=== PATIENT | female | born 1985 | race Caucasian/White ===

== ENCOUNTER 2016-08-04 15:33 | Emergency (ER) | payer OTHER ==
[~2016-08-04] VITALS: Ht 160 cm; Wt 61.4 kg
[~2016-08-04 15:33] MED LIST: ACETAMINOPHEN W1 TA6 PO; ADDERALL30 MG PO; ALBUTEROL0.83 MG/ML IH; ALBUTEROL1.25 MG/3 IH; AMBIEN 10MG10 MG PO; AMOXICILLIN 50500 MG PO; BACTRIM DS 8001 TAB PO; BACTROBAN 22GM22 GM NAS; BENADRYL25 M2; BENADRYL25 M2 PO; CATAPRES 0.1MG0.1 MG; CELEXA 20MG20 MG/TAB PO; CEPHALEXIN500 M1 PO; CIPRO 500MG TA500 MG PO; CLEOCIN HCL300 MG PO; DESYREL 100MG100 MG; DOXYCYCLINE 10100 MG PO; FLAGYL500 MG PO; FLEXERIL 1010 MG/TAB; FLEXERIL 1010 MG/TAB PO; IPRATROPIUM BROM3 M1 IH; LATUDA40 MG PO; LEVAQUIN 5500 MG/TA1 PO; LIORESAL 1010 MG/TAB PO; LORTAB 5/500 501 TAB PO; MAALOX 225 MG/150 ML PO; MAXALT10 MG; NORCO 325 MG-51 TAB PO; NORCO 325 MG-7.1 TAB PO; PEPCID 20MG TAB20 MG PO; PERCOCET 325 MG1 TA2 PO; PHENERGAN 25 TA25 MG PO; PHENERGAN W/CO120 M1 PO; PREDNISONE10 MG PO; PREDNISONE20 MG PO; PROAIR HFA0.09 MG/AC IH; PROVENTIL0.09 MG/A1 IH; PROZAC20 MG PO; SEPTRA DS 8001 TAB PO; TAMIFLU 75MG75 MG PO; TUSS PO; TYLENOL/CODEINE1 ML PO; ULTRAM 50MG TAB50 MG; ULTRAM 50MG TAB50 MG PO; VENTOLIN0.09 MG IH; VYVANSE30 MG PO; VYVANSE50 MG PO; ZITHROMAX 250M250 MG; ZITHROMAX 250M250 MG PO; ZITHROMAX Z PA250 MG PO; ZOFRAN 4MG T4 MG/TAB PO; ZYPREXA10 MG; ZYPREXA20 MG PO
[2016-08-04 15:35] VITALS: BP 145/76; TEMP 98.2
[2016-08-04] MEDS ORDERED: DOXYCYCLINE 10100 MG PO (15:59)
[2016-08-04 16:26] VITALS: PULSE 98
== END 2016-08-04 16:31 | disposition home or self-care (01) ==
LOC: COL.ER 15:33
DX: L03.316 Cellulitis of umbilicus (principal); Z86.14 Personal history of Methicillin resistant Staphylococcus aureus infection; J45.909 Unspecified asthma, uncomplicated; F17.210 Nicotine dependence, cigarettes, uncomplicated

== ENCOUNTER 2017-07-12 02:20 | Emergency (ER) | payer SELFPAY ==
[~2017-07-12] VITALS: Ht 160 cm; Wt 63.6 kg
[2017-07-12 02:29] VITALS: BP 138/88; PULSE 93; TEMP 98.2
== END 2017-07-12 03:12 | disposition home or self-care (01) ==
LOC: COL.ER 02:20
DX: S62.602A Fracture of unspecified phalanx of right middle finger, initial encounter for closed fracture (principal); I10 Essential (primary) hypertension; J45.909 Unspecified asthma, uncomplicated; G43.909 Migraine, unspecified, not intractable, without status migrainosus; F17.210 Nicotine dependence, cigarettes, uncomplicated; F12.90 Cannabis use, unspecified, uncomplicated; F32.9 Major depressive disorder, single episode, unspecified; W22.8XXA Striking against or struck by other objects, initial encounter; Y92.009 Unspecified place in unspecified non-institutional (private) residence as the place of occurrence of the external cause

== ENCOUNTER 2017-09-21 14:25 | Emergency (ER) | payer SELFPAY ==
[~2017-09-21] VITALS: Ht 160 cm; Wt 68.2 kg
[2017-09-21 14:32] VITALS: BP 134/56; PULSE 101; TEMP 98.9
[2017-09-21] MEDS ORDERED: AMOXICILLIN/CLA1 TA1 PO (14:46)
[2017-09-21] MEDS ORDERED: NORCO 325 MG-51 TAB PO (14:46)
[2017-09-21] MEDS ORDERED: ORTHO TRI-CYCLE1 TAB PO (14:47)
== END 2017-09-21 14:54 | disposition home or self-care (01) ==
LOC: COL.ER 14:25
DX: H66.92 Otitis media, unspecified, left ear (principal); J06.9 Acute upper respiratory infection, unspecified; J45.909 Unspecified asthma, uncomplicated; F17.210 Nicotine dependence, cigarettes, uncomplicated

== ENCOUNTER 2017-10-21 23:13 | Emergency (ER) | payer SELFPAY ==
[~2017-10-21] VITALS: Ht 160 cm; Wt 73.2 kg
[~2017-10-21 23:13] MED LIST changes: +AMOXICILLIN/CLA1 TA1 PO; +ORTHO TRI-CYCLE1 TAB PO
[2017-10-21 23:19] VITALS: TEMP 98.4
[2017-10-21] MEDS ORDERED: CYMBALTA 20MG20 MG PO (23:21)
[2017-10-22 02:30] VITALS: BP 119/64; PULSE 63
== END 2017-10-22 02:30 | disposition home or self-care (01) ==
LOC: COL.ER 23:13
DX: G43.909 Migraine, unspecified, not intractable, without status migrainosus (principal); F17.210 Nicotine dependence, cigarettes, uncomplicated
CPT/HCPCS: J0595; J1200; J1885; J2270; J2550

== ENCOUNTER 2017-11-16 16:56 | Emergency (ER) | payer SELFPAY ==
[~2017-11-16] VITALS: Ht 160 cm; Wt 63.6 kg
[~2017-11-16 16:56] MED LIST changes: +CYMBALTA 20MG20 MG PO
[2017-11-16 17:13] VITALS: BP 130/80; TEMP 98.4
[2017-11-16] MEDS ORDERED: BACTRIM DS 8001 TAB PO (18:50)
[2017-11-16 19:04] VITALS: PULSE 88
[2017-11-17] MEDS ORDERED: CEPHALEXIN500 M1 PO (21:42)
== END 2017-11-16 19:04 | disposition home or self-care (01) ==
LOC: COL.ER 16:56
DX: S70.361A Insect bite (nonvenomous), right thigh, initial encounter (principal); J45.909 Unspecified asthma, uncomplicated; F17.210 Nicotine dependence, cigarettes, uncomplicated; Z98.51 Tubal ligation status; Z90.710 Acquired absence of both cervix and uterus; Z88.6 Allergy status to analgesic agent; W57.XXXA Bitten or stung by nonvenomous insect and other nonvenomous arthropods, initial encounter

== ENCOUNTER 2017-11-17 21:06 | Emergency (ER) | payer SELFPAY ==
[~2017-11-17] VITALS: Ht 160 cm; Wt 72.7 kg
[2017-11-17 21:10] VITALS: BP 136/79; TEMP 98.5
[2017-11-17] MEDS ORDERED: CEPHALEXIN500 M1 PO (21:42)
[2017-11-17 21:50] VITALS: PULSE 80
== END 2017-11-17 21:50 | disposition home or self-care (01) ==
LOC: COL.ER 21:06
DX: S70.361A Insect bite (nonvenomous), right thigh, initial encounter (principal); J45.909 Unspecified asthma, uncomplicated; W57.XXXA Bitten or stung by nonvenomous insect and other nonvenomous arthropods, initial encounter

== ENCOUNTER 2018-01-16 05:16 | Emergency (ER) | payer SELFPAY ==
[~2018-01-16] VITALS: Ht 160 cm; Wt 77.3 kg
[2018-01-16 05:20] VITALS: BP 150/91; TEMP 97.4
[2018-01-16 07:06] VITALS: PULSE 78
== END 2018-01-16 07:05 | disposition home or self-care (01) ==
LOC: COL.ER 05:16
DX: G43.909 Migraine, unspecified, not intractable, without status migrainosus (principal); Z90.710 Acquired absence of both cervix and uterus
CPT/HCPCS: J1885

== ENCOUNTER 2018-01-17 16:00 | Emergency (ER) | payer SELFPAY ==
[~2018-01-17] VITALS: Ht 160 cm; Wt 76.4 kg
[2018-01-17 16:04] VITALS: BP 137/81; TEMP 98.5
[2018-01-17 16:56] VITALS: PULSE 87
== END 2018-01-17 17:00 | disposition home or self-care (01) ==
LOC: COL.ER 16:00
DX: G43.909 Migraine, unspecified, not intractable, without status migrainosus (principal); J45.909 Unspecified asthma, uncomplicated; F32.9 Major depressive disorder, single episode, unspecified; F17.210 Nicotine dependence, cigarettes, uncomplicated; Z98.51 Tubal ligation status
CPT/HCPCS: J0595; J2405

== ENCOUNTER 2018-01-21 01:02 | Emergency (ER) | payer SELFPAY ==
[~2018-01-21] VITALS: Ht 160 cm; Wt 77.3 kg
[2018-01-21 01:05] VITALS: TEMP 99.2
[2018-01-21 01:41] LABS: BASO % 0.2 % (0.0-2.0); EOS # 0.6 (0.0-0.7); EOS % 4.9 % (0-4.0); GRAN # 6.9 (1.4-6.5); GRAN % 56.8 % (42.2-75.2); HEMATOCRIT 45.8 % (37.0-47.0); HEMOGLOBIN 15.6 g/dl (12.5-16.0); LYMPH # 3.6 (1.2-3.4); LYMPH % 29.1 % (20.0-51.0); MEAN CELL VOLUME 87 fl (80.0-100.0); MEAN CORPUSCULAR HEMOGLOBIN 30 pg (27.0-31.0); MEAN CORPUSCULAR HGB CONC 34 g/dl (33.0-37.0); MEAN PLATELET VOLUME 8.1 fl (7.4-10.4); MONO # 1.1 (0.1-0.6); MONO % 8.6 % (1.7-9.3); PLATELET COUNT 403 K/mm3 (130-400); RED BLOOD COUNT 5.29 M/mm3 (4.10-5.30); REDCELL DISTRIBUTION WIDTH-CV 13.4 % (11.5-14.5)
[2018-01-21 01:48] LABS: COLLECTION METHOD CLEAN CATCH
[2018-01-21 01:51] LABS: ALBUMIN 4.1 gm/dL (3.5-5.0); BILIRUBIN,TOTAL 0.2 mg/dL (0.0-1.0); CREATININE, serum 0.82 mg/dL (0.52-1.25); POTASSIUM 3.8 mmol/L (3.4-5.0); TOTAL PROTEIN 7.3 gm/dL (6.4-8.2)
[2018-01-21 01:53] LABS: MUCOUS Present /lpf; PH 5 (5-8); SQUAMOUS EPITHELIAL 0-2 /hpf; URINE APPEARANCE Clear; URINE BACTERIA None Seen /hpf; URINE BILIRUBIN Negative (NEGATIVE); URINE BLOOD 1+ (NEGATIVE); URINE COLOR Yellow; URINE GLUCOSE Negative (NEGATIVE); URINE KETONE Negative (NEGATIVE); URINE LEUKOCYTE ESTERASE Negative (NEGATIVE); URINE NITRATE Negative (NEGATIVE); URINE PROTEIN(semi-quant) Negative (NEGATIVE); URINE RBC 0-2 /hpf; URINE UROBILINOGEN Negative (NEGATIVE)
[2018-01-21 05:54] VITALS: BP 133/87; PULSE 114
== END 2018-01-21 06:05 | disposition short-term general hospital (02) ==
LOC: COL.ER 01:02
PROVIDERS: Physician Assistant
DX: J45.901 Unspecified asthma with (acute) exacerbation (principal); Z98.51 Tubal ligation status
CPT/HCPCS: J7512

== ENCOUNTER 2018-02-04 17:29 | Emergency (ER) | payer SELFPAY ==
[~2018-02-04] VITALS: Ht 160 cm; Wt 81.8 kg
[2018-02-04 17:37] VITALS: TEMP 98.1
[2018-02-04 18:40] LABS: BASO # 0.1 (0.0-0.2); BASO % 0.3 % (0.0-2.0); EOS # 0.7 (0.0-0.7); EOS % 4.8 % (0-4.0); GRAN % 55.3 % (42.2-75.2); HEMATOCRIT 44.2 % (37.0-47.0); HEMOGLOBIN 14.7 g/dl (12.5-16.0); LYMPH # 4.4 (1.2-3.4); LYMPH % 30.2 % (20.0-51.0); MEAN CELL VOLUME 88 fl (80.0-100.0); MEAN CORPUSCULAR HEMOGLOBIN 29 pg (27.0-31.0); MEAN CORPUSCULAR HGB CONC 33 g/dl (33.0-37.0); MEAN PLATELET VOLUME 8.2 fl (7.4-10.4); MONO # 1.3 (0.1-0.6); MONO % 8.6 % (1.7-9.3); PLATELET COUNT 364 K/mm3 (130-400); RED BLOOD COUNT 5.03 M/mm3 (4.10-5.30); REDCELL DISTRIBUTION WIDTH-CV 13.6 % (11.5-14.5)
[2018-02-04 18:53] LABS: ALBUMIN 3.8 gm/dL (3.5-5.0); BILIRUBIN,TOTAL 0.2 mg/dL (0.0-1.0); CALCIUM 8.9 mg/dL (8.4-10.2); CREATININE, serum 0.69 mg/dL (0.52-1.25); POTASSIUM 4.1 mmol/L (3.4-5.0); TOTAL PROTEIN 6.6 gm/dL (6.4-8.2)
[2018-02-04 20:46] VITALS: BP 133/72; PULSE 72
== END 2018-02-04 20:48 | disposition home or self-care (01) ==
LOC: COL.ER 17:29
PROVIDERS: Family Medicine
DX: K62.5 Hemorrhage of anus and rectum (principal); J45.909 Unspecified asthma, uncomplicated
CPT/HCPCS: J2270; J2405; J7030; Q9967

== ENCOUNTER 2018-02-11 08:33 | Emergency (ER) | payer SELFPAY ==
[~2018-02-11] VITALS: Ht 160 cm; Wt 81.8 kg
[2018-02-11 08:36] VITALS: TEMP 97.3
[2018-02-11 08:55] LABS: BASO # 0.1 (0.0-0.2); BASO % 0.3 % (0.0-2.0); EOS # 0.6 (0.0-0.7); GRAN # 9.1 (1.4-6.5); GRAN % 58.2 % (42.2-75.2); HEMATOCRIT 46.4 % (37.0-47.0); HEMOGLOBIN 15.6 g/dl (12.5-16.0); LYMPH # 4.6 (1.2-3.4); LYMPH % 29.5 % (20.0-51.0); MEAN CELL VOLUME 87 fl (80.0-100.0); MEAN CORPUSCULAR HEMOGLOBIN 29 pg (27.0-31.0); MEAN CORPUSCULAR HGB CONC 34 g/dl (33.0-37.0); MEAN PLATELET VOLUME 8.4 fl (7.4-10.4); MONO # 1.2 (0.1-0.6); MONO % 7.6 % (1.7-9.3); PLATELET COUNT 387 K/mm3 (130-400); RED BLOOD COUNT 5.32 M/mm3 (4.10-5.30); REDCELL DISTRIBUTION WIDTH-CV 13.9 % (11.5-14.5)
[2018-02-11 09:02] LABS: ALANINE AMINOTRANSFERASE 29 U/L (9-52); ALBUMIN 4.1 gm/dL (3.5-5.0); ALKALINE PHOSPHATASE 73 U/L (50-136); ANION GAP 7 mmol/L (7-16); AST,SGOT 18 U/L (15-37); BILIRUBIN,TOTAL 0.3 mg/dL (0.0-1.0); BLOOD UREA NITROGEN 16 mg/dL (7-17); CALCIUM 9.3 mg/dL (8.4-10.2); CARBON DIOXIDE 24 mmol/L (22-30); CHLORIDE 109 mmol/L (98-107); CREATININE, serum 0.68 mg/dL (0.52-1.25); GLUCOSE 120 mg/dL (74-106); LIPASE 44 U/L (23-300); POTASSIUM 3.9 mmol/L (3.4-5.0); SODIUM 140 mmol/L (137-145); TOTAL PROTEIN 7.1 gm/dL (6.4-8.2)
[2018-02-11] MEDS ORDERED: INFANTS AQU400 IU/ML (09:05)
[2018-02-11] MEDS ORDERED: OMEGA-3 1000 MG1 CAP PO (09:06)
[2018-02-11 09:16] LABS: TROPONIN-I < 0.012 ng/mL (0.000-0.034)
[2018-02-11] MEDS ORDERED: NORCO 325 MG-51 TAB PO (13:07)
[2018-02-11] MEDS ORDERED: PREDNISONE20 MG PO (13:08)
[2018-02-11 13:27] VITALS: BP 136/92; PULSE 84
== END 2018-02-11 13:30 | disposition home or self-care (01) ==
LOC: COL.ER 08:33
PROVIDERS: Emergency Medicine
DX: R07.89 Other chest pain (principal); J45.909 Unspecified asthma, uncomplicated; G43.909 Migraine, unspecified, not intractable, without status migrainosus; F17.210 Nicotine dependence, cigarettes, uncomplicated; Z90.710 Acquired absence of both cervix and uterus
CPT/HCPCS: J1170; J1885; J7030; J7512

== ENCOUNTER 2018-06-03 08:00 | Outpatient (RCR) | payer MEDICAID ==
[~2018-06-03 08:00] MED LIST changes: +DOXYCYCLINE HY100 MG PO; +INFANTS AQU400 IU/ML; +OMEGA-3 1000 MG1 CAP PO; +PRIL40 PO
[2018-08-01] MEDS ORDERED: D3-5050000 IU PO (06:53)
[2018-08-01] MEDS ORDERED: SINGULAIR 110 MG/TAB PO (06:55)
[2018-08-01] MEDS ORDERED: MAGNESIUM250 M1 PO (06:56)
[2018-08-01] MEDS ORDERED: ZITHROMAX Z PA250 MG PO (07:30)
== END 2018-08-31 15:56 | disposition home or self-care (01) ==
LOC: MKS.ESL.PT 08:00
DX: G89.29 Other chronic pain (principal); M54.42 Lumbago with sciatica, left side; M54.41 Lumbago with sciatica, right side

== ENCOUNTER 2018-08-01 06:45 | Emergency (ER) | payer MEDICAID ==
[~2018-08-01] VITALS: Ht 160 cm; Wt 81.8 kg
[2018-08-01 06:48] VITALS: BP 135/86; PULSE 94; TEMP 97.2
[2018-08-01] MEDS ORDERED: D3-5050000 IU PO (06:53)
[2018-08-01] MEDS ORDERED: SINGULAIR 110 MG/TAB PO (06:55)
[2018-08-01] MEDS ORDERED: MAGNESIUM250 M1 PO (06:56)
[2018-08-01] MEDS ORDERED: ZITHROMAX Z PA250 MG PO (07:30)
== END 2018-08-01 07:55 | disposition home or self-care (01) ==
LOC: COL.ER 06:45
DX: J20.9 Acute bronchitis, unspecified (principal); J42 Unspecified chronic bronchitis; J02.9 Acute pharyngitis, unspecified; G43.909 Migraine, unspecified, not intractable, without status migrainosus

== ENCOUNTER 2018-09-17 15:25 | Emergency (ER) | payer MEDICAID ==
[~2018-09-17] VITALS: Ht 160 cm; Wt 85.4 kg
[~2018-09-17 15:25] MED LIST changes: +D3-5050000 IU PO; +MAGNESIUM250 M1 PO; +SINGULAIR 110 MG/TAB PO
[2018-09-17 15:40] VITALS: TEMP 97.4
[2018-09-17 18:22] VITALS: BP 132/84; PULSE 82
== END 2018-09-17 18:25 | disposition home or self-care (01) ==
LOC: COL.ER 15:25
DX: M54.5 Low back pain (principal); J45.909 Unspecified asthma, uncomplicated; G43.909 Migraine, unspecified, not intractable, without status migrainosus; F17.210 Nicotine dependence, cigarettes, uncomplicated; Z98.51 Tubal ligation status; Z90.710 Acquired absence of both cervix and uterus; W19.XXXA Unspecified fall, initial encounter

== ENCOUNTER 2018-10-18 17:13 | Emergency (ER) | payer MEDICAID ==
[~2018-10-18] VITALS: Ht 160 cm; Wt 81.8 kg
[2018-10-18 17:25] VITALS: TEMP 98
[2018-10-18 17:44] LABS: COLLECTION METHOD CLEAN CATCH
[2018-10-18 17:50] LABS: MUCOUS Present /lpf; PH 5 (5-8); SQUAMOUS EPITHELIAL 0-2 /hpf; URINE APPEARANCE Clear; URINE BACTERIA Rare /hpf; URINE BILIRUBIN Negative (NEGATIVE); URINE BLOOD Negative (NEGATIVE); URINE COLOR Yellow; URINE GLUCOSE Negative (NEGATIVE); URINE KETONE Negative (NEGATIVE); URINE LEUKOCYTE ESTERASE Negative (NEGATIVE); URINE NITRATE Negative (NEGATIVE); URINE PROTEIN(semi-quant) Negative (NEGATIVE); URINE RBC 0-2 /hpf; URINE UROBILINOGEN Negative (NEGATIVE)
[2018-10-18 18:02] LABS: TRICYCLIC ANTIDEPRESS URINE NEGATIVE
[2018-10-18 18:05] LABS: BASO % 0.2 % (0.0-2.0); EOS # 0.4 (0.0-0.7); GRAN % 63.2 % (42.2-75.2); HEMATOCRIT 42.3 % (37.0-47.0); HEMOGLOBIN 14.4 g/dl (12.5-16.0); LYMPH # 3.8 (1.2-3.4); LYMPH % 26.7 % (20.0-51.0); MEAN CELL VOLUME 84 fl (80.0-100.0); MEAN CORPUSCULAR HEMOGLOBIN 29 pg (27.0-31.0); MEAN CORPUSCULAR HGB CONC 34 g/dl (33.0-37.0); MEAN PLATELET VOLUME 8.1 fl (7.4-10.4); MONO # 0.9 (0.1-0.6); MONO % 6.5 % (1.7-9.3); PLATELET COUNT 389 K/mm3 (130-400); RED BLOOD COUNT 5.05 M/mm3 (4.10-5.30); REDCELL DISTRIBUTION WIDTH-CV 13.4 % (11.5-14.5)
[2018-10-18 18:14] LABS: ALANINE AMINOTRANSFERASE < 6 U/L (9-52); ALKALINE PHOSPHATASE 83 U/L (50-136); ANION GAP 10 mmol/L (7-16); AST,SGOT 13 U/L (15-37); BILIRUBIN,TOTAL 0.3 mg/dL (0.0-1.0); BLOOD UREA NITROGEN 9 mg/dL (7-17); CALCIUM 9.3 mg/dL (8.4-10.2); CARBON DIOXIDE 17 mmol/L (22-30); CHLORIDE 113 mmol/L (98-107); GLUCOSE 113 mg/dL (74-106); POTASSIUM 3.7 mmol/L (3.4-5.0); SODIUM 140 mmol/L (137-145); TOTAL PROTEIN 7.2 gm/dL (6.4-8.2)
[2018-10-18 18:24] LABS: ACETAMINOPHEN < 10 ug/mL (10-30); ALCOHOL(ethanol),MEDICAL < 10 mg/dL; SALICYLATE < 1.0 mg/dL
[2018-10-18] MEDS ORDERED: ATARAX 25MG25 MG/TAB PO (20:41)
[2018-10-18] MEDS ORDERED: VITAMIN D 50,1.25 MG PO (20:42)
[2018-10-18] MEDS ORDERED: TOPAMAX25 M1 PO (20:43)
[2018-10-18] MEDS ORDERED: SARAFEM20 MG PO (20:44)
[2018-10-18] MEDS ORDERED: SARAFEM10 MG PO (20:44)
[2018-10-18] MEDS ORDERED: MAXALT10 MG (20:45)
[2018-10-19 06:30] VITALS: BP 139/67
[2018-10-19 11:25] VITALS: PULSE 83
== END 2018-10-19 11:20 ==
LOC: COL.ER 17:13
PROVIDERS: Emergency Medicine
DX: R45.851 Suicidal ideations (principal); F32.9 Major depressive disorder, single episode, unspecified; J45.909 Unspecified asthma, uncomplicated; F17.210 Nicotine dependence, cigarettes, uncomplicated

== ENCOUNTER → 2018-12-07 | Outpatient (CLI) | payer MEDICAID ==
[~2018-12-07] MED LIST changes: +ATARAX 25MG25 MG/TAB PO; +NEURONTIN100 MG/CAP PO; +PROVIGIL200 MG PO; +PROZAC40 MG PO; +SARAFEM10 MG PO; +SARAFEM20 MG PO; +TOPAMAX25 M1 PO; +TYLENOL 325MG325 MG PO; +VITAMIN D 50,1.25 MG PO
[2018-12-07 13:12] LABS: BASO % 0.2 % (0.0-2.0); EOS # 0.2 (0.0-0.7); EOS % 2.6 % (0-4.0); GRAN # 4.6 (1.4-6.5); GRAN % 50.8 % (42.2-75.2); HEMATOCRIT 44.3 % (37.0-47.0); HEMOGLOBIN 14.6 g/dl (12.5-16.0); LYMPH # 3.5 (1.2-3.4); LYMPH % 38.9 % (20.0-51.0); MEAN CELL VOLUME 86 fl (80.0-100.0); MEAN CORPUSCULAR HEMOGLOBIN 29 pg (27.0-31.0); MEAN CORPUSCULAR HGB CONC 33 g/dl (33.0-37.0); MEAN PLATELET VOLUME 8.3 fl (7.4-10.4); MONO # 0.7 (0.1-0.6); MONO % 7.2 % (1.7-9.3); PLATELET COUNT 416 K/mm3 (130-400); RED BLOOD COUNT 5.13 M/mm3 (4.10-5.30); REDCELL DISTRIBUTION WIDTH-CV 14.4 % (11.5-14.5)
== END ==
LOC: COL.RAD 12:03
PROVIDERS: Internal Medicine Pulmonary Disease
DX: J45.40 Moderate persistent asthma, uncomplicated (principal)

== ENCOUNTER 2018-12-12 20:19 | Emergency (ER) | payer MEDICAID ==
[~2018-12-12] VITALS: Ht 160 cm; Wt 84.1 kg
[2018-12-12 20:25] VITALS: BP 131/85; TEMP 98.4
[2018-12-12 21:41] LABS: BASO % 0.2 % (0.0-2.0); EOS # 0.3 (0.0-0.7); EOS % 3.1 % (0-4.0); GRAN # 5.3 (1.4-6.5); GRAN % 47.9 % (42.2-75.2); HEMATOCRIT 42.7 % (37.0-47.0); HEMOGLOBIN 14.1 g/dl (12.5-16.0); LYMPH # 4.6 (1.2-3.4); LYMPH % 41.2 % (20.0-51.0); MEAN CELL VOLUME 86 fl (80.0-100.0); MEAN CORPUSCULAR HEMOGLOBIN 29 pg (27.0-31.0); MEAN CORPUSCULAR HGB CONC 33 g/dl (33.0-37.0); MEAN PLATELET VOLUME 8.2 fl (7.4-10.4); MONO # 0.8 (0.1-0.6); MONO % 7.2 % (1.7-9.3); PLATELET COUNT 402 K/mm3 (130-400); RED BLOOD COUNT 4.94 M/mm3 (4.10-5.30); REDCELL DISTRIBUTION WIDTH-CV 14.6 % (11.5-14.5)
[2018-12-12 21:54] LABS: ALANINE AMINOTRANSFERASE < 6 U/L (9-52); ALBUMIN 4.2 gm/dL (3.5-5.0); ALKALINE PHOSPHATASE 81 U/L (50-136); ANION GAP 7 mmol/L (7-16); AST,SGOT 16 U/L (15-37); BILIRUBIN,TOTAL 0.2 mg/dL (0.0-1.0); BLOOD UREA NITROGEN 10 mg/dL (7-17); C-REACTIVE PROTEIN 0.6 mg/dL (0.0-0.9); CALCIUM 8.8 mg/dL (8.4-10.2); CARBON DIOXIDE 21 mmol/L (22-30); CHLORIDE 112 mmol/L (98-107); CREATININE, serum 0.73 (0.52-1.25); GLUCOSE 86 mg/dL (74-106); POTASSIUM 4.3 mmol/L (3.4-5.0); SODIUM 139 mmol/L (137-145); TOTAL PROTEIN 7.2 gm/dL (6.4-8.2)
[2018-12-12 22:53] LABS: COLLECTION METHOD CLEAN CATCH
[2018-12-12 23:16] LABS: MUCOUS Present /lpf; PH 6 (5-8); SQUAMOUS EPITHELIAL 0-2 /hpf; URINE APPEARANCE Clear; URINE BACTERIA None Seen /hpf; URINE BILIRUBIN Negative (NEGATIVE); URINE BLOOD Negative (NEGATIVE); URINE COLOR Yellow; URINE GLUCOSE Negative (NEGATIVE); URINE KETONE Negative (NEGATIVE); URINE LEUKOCYTE ESTERASE Negative (NEGATIVE); URINE NITRATE Negative (NEGATIVE); URINE PROTEIN(semi-quant) Negative (NEGATIVE); URINE RBC 0-2 /hpf; URINE UROBILINOGEN Negative (NEGATIVE)
[2018-12-13 00:20] VITALS: PULSE 68
== END 2018-12-13 00:20 | disposition home or self-care (01) ==
LOC: COL.ER 20:19
PROVIDERS: Emergency Medicine
DX: M54.5 Low back pain (principal); G89.29 Other chronic pain; F17.210 Nicotine dependence, cigarettes, uncomplicated
CPT/HCPCS: J3010; Q9967

== ENCOUNTER → 2018-12-22 | Outpatient (CLI) | payer MEDICAID | LOC: COL.RAD 14:08 | DX: M43.06 Spondylolysis, lumbar region (principal); M51.16 Intervertebral disc disorders with radiculopathy, lumbar region ==

== ENCOUNTER 2018-12-29 00:07 | Emergency (ER) | payer MEDICAID ==
[~2018-12-29] VITALS: Ht 162.6 cm; Wt 87.3 kg
[2018-12-29 00:17] VITALS: BP 132/80; TEMP 98.2
[2018-12-29 02:35] VITALS: PULSE 82
== END 2018-12-29 02:35 | disposition home or self-care (01) ==
LOC: COL.ER 00:07
DX: G43.909 Migraine, unspecified, not intractable, without status migrainosus (principal); F17.210 Nicotine dependence, cigarettes, uncomplicated; J44.9 Chronic obstructive pulmonary disease, unspecified; Z90.710 Acquired absence of both cervix and uterus
CPT/HCPCS: J1200; J1885; J2550

== ENCOUNTER 2019-01-10 21:02 | Emergency (ER) | payer MEDICAID ==
[~2019-01-10] VITALS: Ht 160 cm; Wt 86.8 kg
[2019-01-10 21:08] VITALS: BP 147/89; TEMP 97.7
[2019-01-10 21:45] VITALS: PULSE 79
== END 2019-01-10 21:51 | disposition home or self-care (01) ==
LOC: COL.ER 21:02
DX: L02.411 Cutaneous abscess of right axilla (principal)

== ENCOUNTER 2019-01-29 15:00 | Emergency (ER) | payer MEDICAID ==
[~2019-01-29] VITALS: Ht 160 cm; Wt 86.8 kg
[2019-01-29 15:13] VITALS: TEMP 97.4
[2019-01-29 15:50] LABS: BASO % 0.2 % (0.0-2.0); EOS # 0.4 (0.0-0.7); EOS % 4.9 % (0-4.0); GRAN # 3.4 (1.4-6.5); GRAN % 38.1 % (42.2-75.2); HEMATOCRIT 41.4 % (37.0-47.0); HEMOGLOBIN 13.6 g/dl (12.5-16.0); LYMPH # 4.3 (1.2-3.4); LYMPH % 47.9 % (20.0-51.0); MEAN CELL VOLUME 89 fl (80.0-100.0); MEAN CORPUSCULAR HEMOGLOBIN 29 pg (27.0-31.0); MEAN CORPUSCULAR HGB CONC 33 g/dl (33.0-37.0); MEAN PLATELET VOLUME 8.3 fl (7.4-10.4); MONO # 0.7 (0.1-0.6); PLATELET COUNT 409 K/mm3 (130-400); RED BLOOD COUNT 4.66 M/mm3 (4.10-5.30); REDCELL DISTRIBUTION WIDTH-CV 14.6 % (11.5-14.5)
[2019-01-29 15:59] LABS: ALBUMIN 4.1 gm/dL (3.5-5.0); BILIRUBIN,TOTAL 0.3 mg/dL (0.0-1.0); CALCIUM 9.4 mg/dL (8.4-10.2); CREATININE, serum 0.67 (0.52-1.25); POTASSIUM 4.2 mmol/L (3.4-5.0); TOTAL PROTEIN 7.2 gm/dL (6.4-8.2)
[2019-01-29 16:30] LABS: COLLECTION METHOD CLEAN CATCH
[2019-01-29 16:36] LABS: MUCOUS Present /lpf; PH 5 (5-8); SQUAMOUS EPITHELIAL 0-2 /hpf; URINE APPEARANCE Clear; URINE BACTERIA Rare /hpf; URINE BILIRUBIN Negative (NEGATIVE); URINE BLOOD Negative (NEGATIVE); URINE COLOR Yellow; URINE GLUCOSE Negative (NEGATIVE); URINE KETONE Negative (NEGATIVE); URINE LEUKOCYTE ESTERASE Negative (NEGATIVE); URINE NITRATE Negative (NEGATIVE); URINE PROTEIN(semi-quant) Negative (NEGATIVE); URINE RBC 0-2 /hpf; URINE UROBILINOGEN Negative (NEGATIVE)
[2019-01-29] MEDS ORDERED: NORCO 325 MG-51 TAB PO (16:55)
[2019-01-29] MEDS ORDERED: ZOFRAN ODT4 MG PO (16:55)
[2019-01-29 17:19] VITALS: BP 114/95; PULSE 86
== END 2019-01-29 17:18 | disposition home or self-care (01) ==
LOC: COL.ER 15:00
PROVIDERS: Emergency Medicine
DX: R11.2 Nausea with vomiting, unspecified (principal); M54.5 Low back pain; J44.9 Chronic obstructive pulmonary disease, unspecified; F41.9 Anxiety disorder, unspecified; F43.10 Post-traumatic stress disorder, unspecified; F17.210 Nicotine dependence, cigarettes, uncomplicated; Z90.710 Acquired absence of both cervix and uterus; Z98.51 Tubal ligation status
CPT/HCPCS: J1885; J2405; J3010; J7030

== ENCOUNTER 2019-02-01 20:03 | Emergency (ER) | payer MEDICAID ==
[~2019-02-01] VITALS: Ht 160 cm; Wt 86.8 kg
[~2019-02-01 20:03] MED LIST changes: +ZOFRAN ODT4 MG PO
[2019-02-01 20:18] VITALS: TEMP 98.4
[2019-02-01 20:48] LABS: STREP SCREEN NEGATIVE
[2019-02-01] MEDS ORDERED: NYSTATIN OR100 MU/ML PO (22:07)
[2019-02-01 22:16] VITALS: BP 120/80; PULSE 75
== END 2019-02-01 22:16 | disposition home or self-care (01) ==
LOC: COL.ER 20:03
PROVIDERS: Family Medicine
DX: J02.9 Acute pharyngitis, unspecified (principal); F31.9 Bipolar disorder, unspecified; G43.909 Migraine, unspecified, not intractable, without status migrainosus; J45.909 Unspecified asthma, uncomplicated; F17.210 Nicotine dependence, cigarettes, uncomplicated; I10 Essential (primary) hypertension

== ENCOUNTER 2019-02-05 02:35 | Emergency (ER) | payer MEDICAID ==
[~2019-02-05] VITALS: Ht 160 cm; Wt 90.9 kg
[~2019-02-05 02:35] MED LIST changes: +NYSTATIN OR100 MU/ML PO
[2019-02-05 02:54] VITALS: BP 131/82; TEMP 98.2
[2019-02-05 03:40] LABS: BASO % 0.1 % (0.0-2.0); EOS # 0.4 (0.0-0.7); EOS % 3.5 % (0-4.0); GRAN # 7.2 (1.4-6.5); GRAN % 59.9 % (42.2-75.2); HEMATOCRIT 38.9 % (37.0-47.0); HEMOGLOBIN 12.9 g/dl (12.5-16.0); LYMPH # 3.5 (1.2-3.4); LYMPH % 29.1 % (20.0-51.0); MEAN CELL VOLUME 87 fl (80.0-100.0); MEAN CORPUSCULAR HEMOGLOBIN 29 pg (27.0-31.0); MEAN CORPUSCULAR HGB CONC 33 g/dl (33.0-37.0); MEAN PLATELET VOLUME 8.1 fl (7.4-10.4); MONO # 0.8 (0.1-0.6); MONO % 6.6 % (1.7-9.3); PLATELET COUNT 406 K/mm3 (130-400); RED BLOOD COUNT 4.48 M/mm3 (4.10-5.30); REDCELL DISTRIBUTION WIDTH-CV 14.3 % (11.5-14.5)
[2019-02-05 03:45] LABS: ALBUMIN 3.9 gm/dL (3.5-5.0); BILIRUBIN,TOTAL 0.4 mg/dL (0.0-1.0); CREATININE, serum 0.7 (0.52-1.25); POTASSIUM 3.9 mmol/L (3.4-5.0); TOTAL PROTEIN 7.2 gm/dL (6.4-8.2)
[2019-02-05 05:21] VITALS: PULSE 85
== END 2019-02-05 05:21 | disposition home or self-care (01) ==
LOC: COL.ER 02:35
PROVIDERS: Emergency Medicine
DX: J45.901 Unspecified asthma with (acute) exacerbation (principal); F17.210 Nicotine dependence, cigarettes, uncomplicated; Z90.710 Acquired absence of both cervix and uterus
CPT/HCPCS: J7030

== ENCOUNTER → 2019-02-09 | Outpatient (CLI) | payer MEDICAID ==
[~2019-02-09] MED LIST changes: +00186-0370-20 IH; +CHANTIX 1MG1 MG PO; +LEVAQUIN 750MG750 M1 PO; +PREDNISONE20 MG; +RITALIN 5MG5 MG/TAB PO; +RT SPIRIVA18 MCG IH; +TESSALON PERLE200 MG PO
== END ==
LOC: MHCPAIN 13:16
DX: G89.29 Other chronic pain (principal); M47.817 Spondylosis without myelopathy or radiculopathy, lumbosacral region; M54.16 Radiculopathy, lumbar region; M53.3 Sacrococcygeal disorders, not elsewhere classified
CPT/HCPCS: G0463

== ENCOUNTER 2019-03-05 13:35 | Emergency (ER) | payer MEDICAID ==
[~2019-03-05] VITALS: Ht 160 cm; Wt 90.0 kg
[~2019-03-05 13:35] MED LIST changes: +OMNICEF 300MG300 MG PO; +ROBITUSSIN DM 105 ML PO
[2019-03-05 13:46] VITALS: TEMP 98.4
[2019-03-05 15:07] LABS: COLLECTION METHOD CLEAN CATCH
[2019-03-05 15:27] LABS: MUCOUS Present /lpf; PH 6 (5-8); SQUAMOUS EPITHELIAL 0-2 /hpf; URINE APPEARANCE Clear; URINE BACTERIA Moderate /hpf; URINE BILIRUBIN Negative (NEGATIVE); URINE BLOOD 2+ (NEGATIVE); URINE COLOR Yellow; URINE GLUCOSE Negative (NEGATIVE); URINE KETONE Negative (NEGATIVE); URINE LEUKOCYTE ESTERASE Trace (NEGATIVE); URINE NITRATE Negative (NEGATIVE); URINE PROTEIN(semi-quant) Negative (NEGATIVE); URINE UROBILINOGEN Negative (NEGATIVE)
[2019-03-05 15:47] LABS: BASO % 0.2 % (0.0-2.0); EOS # 0.5 (0.0-0.7); EOS % 5.3 % (0-4.0); GRAN % 56.3 % (42.2-75.2); HEMATOCRIT 39.1 % (37.0-47.0); HEMOGLOBIN 13.1 g/dl (12.5-16.0); LYMPH # 2.8 (1.2-3.4); LYMPH % 32.3 % (20.0-51.0); MEAN CELL VOLUME 87 fl (80.0-100.0); MEAN CORPUSCULAR HEMOGLOBIN 29 pg (27.0-31.0); MEAN CORPUSCULAR HGB CONC 34 g/dl (33.0-37.0); MEAN PLATELET VOLUME 8.4 fl (7.4-10.4); MONO # 0.5 (0.1-0.6); MONO % 5.1 % (1.7-9.3); PLATELET COUNT 383 K/mm3 (130-400); RED BLOOD COUNT 4.48 M/mm3 (4.10-5.30)
[2019-03-05 17:20] LABS: ALANINE AMINOTRANSFERASE 19 U/L (9-52); ALBUMIN 3.4 gm/dL (3.5-5.0); ALKALINE PHOSPHATASE 85 U/L (50-136); ANION GAP 7 mmol/L (7-16); AST,SGOT 19 U/L (15-37); BILIRUBIN,TOTAL < 0.1 mg/dL (0.0-1.0); BLOOD UREA NITROGEN 9 mg/dL (7-17); CALCIUM 8.4 mg/dL (8.4-10.2); CARBON DIOXIDE 21 mmol/L (22-30); CHLORIDE 108 mmol/L (98-107); CREATININE, serum 0.65 (0.52-1.25); GLUCOSE 120 mg/dL (74-106); POTASSIUM 4.1 mmol/L (3.4-5.0); SODIUM 136 mmol/L (137-145); TOTAL PROTEIN 6.3 gm/dL (6.4-8.2)
[2019-03-05] MEDS ORDERED: NORCO 325 MG-51 TAB PO (17:22)
[2019-03-05 17:36] VITALS: BP 128/89; PULSE 93
[2019-03-05] MEDS ORDERED: CEPHALEXIN500 M1 PO (18:41)
== END 2019-03-05 17:32 | disposition home or self-care (01) ==
LOC: COL.ER 13:35
PROVIDERS: Emergency Medicine
DX: G89.29 Other chronic pain (principal); R10.9 Unspecified abdominal pain; F17.210 Nicotine dependence, cigarettes, uncomplicated; G43.909 Migraine, unspecified, not intractable, without status migrainosus; F31.9 Bipolar disorder, unspecified; J44.9 Chronic obstructive pulmonary disease, unspecified; Z98.51 Tubal ligation status; Z90.710 Acquired absence of both cervix and uterus
CPT/HCPCS: J2270; J7030; Q9967

== ENCOUNTER 2019-03-15 21:05 | Emergency (ER) | payer MEDICAID ==
[~2019-03-15] VITALS: Ht 160 cm; Wt 95.0 kg
[~2019-03-15 21:05] MED LIST changes: +PROZAC 20MG20 MG PO; -PROZAC40 MG PO
[2019-03-15 21:10] VITALS: TEMP 97.8
[2019-03-15 21:51] LABS: BASO % 0.4 % (0.0-2.0); EOS # 0.8 (0.0-0.7); EOS % 6.8 % (0-4.0); GRAN # 4.8 (1.4-6.5); GRAN % 42.8 % (42.2-75.2); HEMOGLOBIN 13.6 g/dl (12.5-16.0); LYMPH # 4.7 (1.2-3.4); MEAN CELL VOLUME 87 fl (80.0-100.0); MEAN CORPUSCULAR HEMOGLOBIN 29 pg (27.0-31.0); MEAN CORPUSCULAR HGB CONC 33 g/dl (33.0-37.0); MONO # 0.8 (0.1-0.6); MONO % 6.8 % (1.7-9.3); PLATELET COUNT 517 K/mm3 (130-400); RED BLOOD COUNT 4.72 M/mm3 (4.10-5.30)
[2019-03-15] MEDS ORDERED: NEURONTIN100 MG/CAP PO (21:55)
[2019-03-15 22:01] LABS: ALBUMIN 4.2 gm/dL (3.5-5.0); BILIRUBIN,TOTAL 0.1 mg/dL (0.0-1.0); CREATININE, serum 0.65 (0.52-1.25); POTASSIUM 3.8 mmol/L (3.4-5.0); TOTAL PROTEIN 7.5 gm/dL (6.4-8.2)
[2019-03-15 22:25] LABS: ERYTHROCYTE SEDIMENTATION RATE 14 mm/hr (0-20)
[2019-03-15 22:57] VITALS: BP 128/80; PULSE 91
[2019-03-15] MEDS ORDERED: BACTRIM DS 8001 TAB PO (22:59)
== END 2019-03-15 23:06 | disposition home or self-care (01) ==
LOC: COL.ER 21:05
PROVIDERS: Emergency Medicine
DX: L73.8 Other specified follicular disorders (principal); F31.9 Bipolar disorder, unspecified; G43.909 Migraine, unspecified, not intractable, without status migrainosus; J44.9 Chronic obstructive pulmonary disease, unspecified

== ENCOUNTER 2019-03-16 20:42 | Emergency (ER) | payer MEDICAID ==
[~2019-03-16] VITALS: Ht 160 cm; Wt 95.0 kg
[2019-03-16 20:53] VITALS: TEMP 97.6
[2019-03-16 21:35] LABS: BASO # 0.1 (0.0-0.2); BASO % 0.4 % (0.0-2.0); EOS # 0.6 (0.0-0.7); EOS % 5.2 % (0-4.0); GRAN # 5.7 (1.4-6.5); GRAN % 47.7 % (42.2-75.2); HEMATOCRIT 40.6 % (37.0-47.0); HEMOGLOBIN 13.2 g/dl (12.5-16.0); LYMPH # 4.6 (1.2-3.4); LYMPH % 38.3 % (20.0-51.0); MEAN CELL VOLUME 88 fl (80.0-100.0); MEAN CORPUSCULAR HEMOGLOBIN 29 pg (27.0-31.0); MEAN CORPUSCULAR HGB CONC 33 g/dl (33.0-37.0); MONO # 0.9 (0.1-0.6); MONO % 7.6 % (1.7-9.3); PLATELET COUNT 522 K/mm3 (130-400); RED BLOOD COUNT 4.61 M/mm3 (4.10-5.30); REDCELL DISTRIBUTION WIDTH-CV 14.2 % (11.5-14.5)
[2019-03-16 22:27] LABS: ERYTHROCYTE SEDIMENTATION RATE 18 mm/hr (0-20)
[2019-03-16 23:18] VITALS: BP 133/81; PULSE 84
== END 2019-03-16 23:45 | disposition home or self-care (01) ==
LOC: COL.ER 20:42
PROVIDERS: Emergency Medicine
DX: L73.9 Follicular disorder, unspecified (principal); F31.9 Bipolar disorder, unspecified; J44.9 Chronic obstructive pulmonary disease, unspecified; J45.909 Unspecified asthma, uncomplicated; G43.909 Migraine, unspecified, not intractable, without status migrainosus
CPT/HCPCS: J2270; Q9967

== ENCOUNTER 2019-03-17 11:07 | Inpatient (IN) | payer MEDICAID ==
[2019-03-17] VITALS (11 sets, daily range): BP systolic 120–137; BP diastolic 63–109; PULSE 80–106; TEMP 97–98.5
[~2019-03-17] VITALS: Ht 160 cm; Wt 93.5 kg
--- NOTE | 2019-03-17 12:40 | NUR ---
Patient [place] [facility] She is alert and oriented. She is able to ambulate to room with steady gait. Procedure confirmed, denies any questions, and verbalizes understanding. VSS and WNL on room air. Changes to gown independently. PIV started in left hand with x1 attempt and without complication. History and medication list completed with patient. Breath sounds clear bilaterally to auscultation. Clear S1S2 heart tones heard with regular rate noted. +2 radial, PT, and DP pulses bilaterally. No edema noted. Bowel sounds present and active. Suprapubic incision is red, swollen. Patient to the OR with SUBWAY CONDUCTOR Josie at 1240.
--- NOTE | 2019-03-17 13:30 | NUR ---
Patient up to floor at 1330, mother met in room, patient reports having headache and has eyes covered, room is dark and she requests silence. Provided with requested caffene. Pain medications offered and will be taken to patient.
--- NOTE | 2019-03-17 19:00 | NUR ---
Patient arrived to floor at 1330, was complaining of headache. Had head covered with blanket and all lights off, did become irritated with mother when she was talking loudly. Did offer warm blanket to place over head and she accepted. Dressing observed and was clean dry and intact. She did request a pop, took in 2 pepsis and she requested Dr. Duggan. Called dietary and Dr. Duggan is not carried. She was left the 2 pepsis and a cup of ice. 1430 she did end up drinking both pops. She was administered PRN morphine and roxicodone, rested then requested to go to the bathroom. Ambulated to restroom with assist. She did begin feeling better just complaining of feeling sore, headache was improving. New dressing placed after returing to bed as the other was falling off. Small amount of pink drainage noted to dressing. She complained of itching under the tape. Did apply paper tape and a new abd. 1715 she still had complaints of itching. Was provided with mesh panties and applied new abd pad without tape per her request. Packing is still in place and old dressing again had pink drainage. 1800 patient requested benadryl as she continued to itch. She stated that Dr. Oglesby had seen her during the time she requested the benadryl. Did place call to him and he did give an order as entered in JUN. This was adminsitered at 1830. Patient was sitting up in bed at this time with mother and aunt at bedside. They had brought her [employer] and she was noted to eat a full meal and drink a large Dr. Duggan. Report was given to oncoming nurse. Has call light and personal items are within reach.
--- NOTE | 2019-03-17 19:45 | NUR ---
Patient report from RAFAL Browne at bedside during shift change. Upon assessment at this time patient is resting in bed, reports 9/10 headache. Patient denies n/v. Scheduled tylenol given. Patient tolerating eating and drinking, IV to INT. Dressing still CDI at this time. No other needs reported/observed.
--- NOTE | 2019-03-17 19:45 | NUR ---
Patient is resting in bed, head is elevated, lights are off. Call light and personal items are within reach.
[2019-03-18 00:19] VITALS: BP 121/72; PULSE 91; TEMP 97.8
[2019-03-18 04:16] VITALS: BP 123/74; PULSE 80; TEMP 97.9
--- NOTE | 2019-03-18 07:22 | NUR ---
Patient report given to RAFAL Browne. Patient has been resting comfortably since around 0230. No other needs observed.
[2019-03-18 08:05] VITALS: BP 117/72; PULSE 78; TEMP 97.6
--- NOTE | 2019-03-18 08:20 | NUR ---
Patient is awake and alert, sitting up in bed. Requested 2 Pepsis and was provided with this. She was administered morning medicaitons. Stated she should be taking a ppi as she had an EGD within this past month and has aquired pneumonia from aspirating emesis in her sleep. She states she has pain, rating it at a 5/10. Was administered PRN pain medication and scheduled tylenol. Did request benadryl as her hands were itching, was also administered this as ordered. She requests a fan for her room as well. Will attempt to obtain fan and call provider for requested PPI medication.
--- NOTE | 2019-03-18 10:10 | NUR ---
Patient observed walking hallway independently without oxygen. Gait is steady.
--- NOTE | 2019-03-18 11:13 | NUR ---
Patient took shower at 1045 independently. Provided with new dressing and mesh panties. Pain has increased after shower. Provided with PRN pain medication as ordered on JUN.
--- NOTE | 2019-03-18 12:27 | NUR ---
Patient called staff for dose of benadryl as she has been itching. She was notified that she can't have it for another 2 hours. We discussed the possibility of pain medication making her itch and she feels it could be the IV morphine as not long after receiving the dose she begins to itch. Skin is red from scratching. She would only like to keep taking oral pain medication only.
--- NOTE | 2019-03-18 16:34 | NUR ---
Insurance Loss Control Surveyor met with patient to discuss discharge plan. Patient lives in [place] with her three children. Patient states her mother, Trinh (ph#[phone]) is watching the kids right now. Patient sees Dr. Ortega for primary care and obtains medications from [facility] pharmacy. Patient expressed that she gets her Ritalin prescription from Dr. Zambrano in [place] as Dr. Ortega will not prescribe it to her. Patient states this is inconvienent for her and is concerned about getting her next refill as she missed her appointment yesterday with Dr. Zambrano due to emergency surgery. Patient states if she can't get her Ritalin prescription, she will become depressed and is concerned that she will use drugs. Patient also expressed concern about caring for her incision after discharge. SW to continue to follow.
[2019-03-18 17:05] VITALS: BP 127/82; PULSE 84; TEMP 97.6
--- NOTE | 2019-03-18 19:40 | NUR ---
Patient notifed this nurse at this time that since around 1200 she has had increased swelling to her left labia. Labia is obviously swollen and painful to the touch. Dr. Chavira was notified and he was familiar with the patient's situation. He stated that the type of swelling was to be expected for having a drain to the I&D site. Packing is being utilized as a wicking drain. Was reported to patient and oncoming shift report.
--- NOTE | 2019-03-18 19:40 | NUR ---
Shift assessment complete. Pt resting in bed, awake, a&o, cooperative c cares. Pt continued c/o pain to suprapubic incision rated "7/10" at this time; provided c PRN pain med per pt req. Pt denies any other c/o. New IV access obtained by electrician apprentice powerhouse. Pt denies any further needs. Call light in reach. Will continue to monitor.
[2019-03-18 21:28] VITALS: BP 113/63; PULSE 88; TEMP 98.1
[2019-03-19 00:46] VITALS: BP 96/46; PULSE 84; TEMP 98.4
[2019-03-19 03:25] VITALS: BP 93/56; PULSE 81; TEMP 98.1
[2019-03-19 09:24] VITALS: BP 118/63; PULSE 79; TEMP 98.4
--- NOTE | 2019-03-19 16:15 | NUR ---
discharge instructions discussed, instructed to take meds as prescribed, instructed to follow up with Urology per their recs, instructed to shower but no bathtubs or hot tubs, IV removed, leaving with family, i personally escorted her our
== END 2019-03-19 16:19 | disposition home or self-care (01) | DRG 908 ==
LOC: SURG 11:07 → MEDICAL 11:57 → INPTSU 11:57 → SURG 14:00 → MEDICAL 16:51
PROVIDERS: ADMIT Urology
PROC: 0J9C0ZZ Drainage of Pelvic Region Subcutaneous Tissue and Fascia, Open Approach (ICD-10-PCS; principal; 2019-03-17 14:00)
DX: L76.34 Postprocedural seroma of skin and subcutaneous tissue following other procedure (principal); T81.30XA Disruption of wound, unspecified, initial encounter; T81.49XA Infection following a procedure, other surgical site, initial encounter; L02.818 Cutaneous abscess of other sites; Y83.8 Other surgical procedures as the cause of abnormal reaction of the patient, or of later complication, without mention of misadventure at the time of the procedure
CPT/HCPCS: OP; A4216; A9284; J0690; J0696; J1100; J1200; J1450; J2270; J2405; J2704; J3010; J7120

== ENCOUNTER 2019-04-11 15:18 | Emergency (ER) | payer MEDICAID ==
[~2019-04-11] VITALS: Ht 160 cm; Wt 90.9 kg
[2019-04-11 15:25] VITALS: BP 164/90; TEMP 97.6
[2019-04-11 17:10] VITALS: PULSE 71
== END 2019-04-11 17:10 | disposition home or self-care (01) ==
LOC: COL.ER 15:18
DX: G43.909 Migraine, unspecified, not intractable, without status migrainosus (principal); F31.9 Bipolar disorder, unspecified; J44.9 Chronic obstructive pulmonary disease, unspecified; K21.9 Gastro-esophageal reflux disease without esophagitis; F17.210 Nicotine dependence, cigarettes, uncomplicated; Z90.710 Acquired absence of both cervix and uterus
CPT/HCPCS: J1885; J2550

== ENCOUNTER 2019-04-29 15:07 | Emergency (ER) | payer MEDICAID | END 2019-04-29 15:43 | disposition left against medical advice (07) | LOC: COL.ER 15:07 | DX: Z72.9 Problem related to lifestyle, unspecified (principal) ==

== ENCOUNTER 2019-06-07 21:24 | Emergency (ER) | payer MEDICAID ==
[~2019-06-07] VITALS: Ht 160 cm; Wt 90.9 kg
[2019-06-07] MEDS ORDERED: TAMIFLU 75MG75 MG PO (22:46)
[2019-06-07] MEDS ORDERED: TUSS PO (22:46)
[2019-06-07 22:51] VITALS: BP 137/85; PULSE 88; TEMP 98.1
[2019-06-08] MEDS ORDERED: TUSS PO (16:17)
== END 2019-06-07 23:00 | disposition home or self-care (01) ==
LOC: COL.ER 21:24
DX: J10.1 Influenza due to other identified influenza virus with other respiratory manifestations (principal); J44.9 Chronic obstructive pulmonary disease, unspecified; G43.909 Migraine, unspecified, not intractable, without status migrainosus
CPT/HCPCS: J1885

== ENCOUNTER 2019-06-11 18:11 | Emergency (ER) | payer MEDICAID ==
[~2019-06-11] VITALS: Ht 160 cm; Wt 90.9 kg
[2019-06-11 18:35] VITALS: BP 120/86; TEMP 98.1
[2019-06-11] MEDS ORDERED: CEPHALEXIN500 M1 PO (19:01)
[2019-06-11 19:15] VITALS: PULSE 89
[2019-06-11] MEDS ORDERED: ZOFRAN 4MG T4 MG/TAB PO (19:29)
== END 2019-06-11 19:15 | disposition home or self-care (01) ==
LOC: COL.ER 18:11
DX: J45.909 Unspecified asthma, uncomplicated (principal); J20.9 Acute bronchitis, unspecified; J11.1 Influenza due to unidentified influenza virus with other respiratory manifestations

== ENCOUNTER 2019-10-30 05:18 | Emergency (ER) | payer MEDICAID ==
[~2019-10-30] VITALS: Ht 160 cm; Wt 90.9 kg
[~2019-10-30 05:18] MED LIST changes: +AMITRIPTYLINE H50 M1 PO; +ATIVAN 1MG T1 MG/TAB PO; +LATUDA60 MG PO; +PRINIVIL10 MG PO; +VYVANSE40 MG PO; +ZYRTEC 10MG10 MG PO
[2019-10-30 05:28] VITALS: TEMP 97.9
[2019-10-30 08:40] VITALS: BP 146/85; PULSE 77
== END 2019-10-30 08:40 | disposition home or self-care (01) ==
LOC: COL.ER 05:18
DX: G43.909 Migraine, unspecified, not intractable, without status migrainosus (principal); F17.200 Nicotine dependence, unspecified, uncomplicated; F31.9 Bipolar disorder, unspecified; J44.9 Chronic obstructive pulmonary disease, unspecified
CPT/HCPCS: J1200; J1630; J1885; J2550; J3010; J7030

== ENCOUNTER 2019-12-19 15:00 | Outpatient (RCR) | payer MEDICAID ==
[2019-09-27 13:29] VITALS: BP 117/70; PULSE 79; TEMP 97.9
--- NOTE | 2019-09-27 15:45 | NUR ---
Pt discharge after two hours post injections.Pt denies symtpoms of reaction.Today was her first injection of xolair per pt.
[2019-10-18 16:01] VITALS: BP 137/99; PULSE 97; TEMP 98.4
[2019-11-08 13:27] VITALS: BP 117/86; PULSE 89; TEMP 98.4
[2019-11-22 13:43] VITALS: BP 119/90; PULSE 94; TEMP 97.9
[~2019-12-19] VITALS: Ht 160 cm; Wt 99.9 kg
[2019-12-19 15:09] VITALS: BP 122/58; PULSE 87; TEMP 98
[2019-12-25] MEDS ORDERED: MACROBID 1100 MG/CAP PO (22:53)
[2019-12-25] MEDS ORDERED: PYRIDIUM200 M1 PO (22:53)
[2019-12-25] MEDS ORDERED: COGENTIN 2MG2 MG/TA1 PO (23:04)
== END 2019-12-26 ==
LOC: EUO
DX: J45.40 Moderate persistent asthma, uncomplicated (principal); Z79.51 Long term (current) use of inhaled steroids
CPT/HCPCS: J2357

== ENCOUNTER 2019-12-25 19:51 | Emergency (ER) | payer MEDICAID ==
[~2019-12-25] VITALS: Ht 160 cm; Wt 90.9 kg
[2019-12-25 20:05] VITALS: BP 127/84; TEMP 98.3
[2019-12-25 20:54] LABS: COLLECTION METHOD CLEAN CATCH
[2019-12-25 21:11] LABS: MUCOUS Present /lpf; PH 5 (5-8); URINE APPEARANCE Cloudy; URINE BACTERIA Occasional /hpf; URINE BILIRUBIN Negative (NEGATIVE); URINE BLOOD 3+ (NEGATIVE); URINE COLOR Amber; URINE GLUCOSE Negative (NEGATIVE); URINE KETONE Trace (NEGATIVE); URINE LEUKOCYTE ESTERASE Negative (NEGATIVE); URINE NITRATE Negative (NEGATIVE); URINE PROTEIN(semi-quant) 2+ (NEGATIVE); URINE RBC >50 /hpf
[2019-12-25 21:33] LABS: BASO % 0.2 % (0.0-2.0); EOS # 0.4 (0.0-0.7); EOS % 3.1 % (0-4.0); GRAN # 6.2 (1.4-6.5); GRAN % 55.1 % (42.2-75.2); HEMATOCRIT 42.4 % (37.0-47.0); HEMOGLOBIN 14.3 g/dl (12.5-16.0); LYMPH # 3.7 (1.2-3.4); LYMPH % 33.2 % (20.0-51.0); MEAN CELL VOLUME 83 fl (80.0-100.0); MEAN CORPUSCULAR HEMOGLOBIN 28 pg (27.0-31.0); MEAN CORPUSCULAR HGB CONC 34 g/dl (33.0-37.0); MEAN PLATELET VOLUME 8.4 fl (7.4-10.4); MONO # 0.9 (0.1-0.6); MONO % 8.1 % (1.7-9.3); PLATELET COUNT 451 K/mm3 (130-400); RED BLOOD COUNT 5.09 M/mm3 (4.10-5.30); REDCELL DISTRIBUTION WIDTH-CV 13.8 % (11.5-14.5)
[2019-12-25 22:01] LABS: ALBUMIN 4.5 gm/dL (3.5-5.0); BILIRUBIN,TOTAL 0.5 mg/dL (0.0-1.0); C-REACTIVE PROTEIN 1.5 mg/dL (0.0-0.9); CALCIUM 9.6 mg/dL (8.4-10.2); CREATININE, serum 0.98 (0.52-1.25); POTASSIUM 3.9 mmol/L (3.4-5.0)
[2019-12-25] MEDS ORDERED: PYRIDIUM200 M1 PO (22:53)
[2019-12-25] MEDS ORDERED: MACROBID 1100 MG/CAP PO (22:53)
[2019-12-25] MEDS ORDERED: COGENTIN 2MG2 MG/TA1 PO (23:04)
[2019-12-25 23:07] VITALS: PULSE 86
== END 2019-12-25 23:07 | disposition home or self-care (01) ==
LOC: COL.ER 19:51
PROVIDERS: Emergency Medicine
DX: N39.0 Urinary tract infection, site not specified (principal); N83.202 Unspecified ovarian cyst, left side; I10 Essential (primary) hypertension; Z32.02 Encounter for pregnancy test, result negative; Z88.6 Allergy status to analgesic agent; Z88.8 Allergy status to other drugs, medicaments and biological substances; Z91.09 Other allergy status, other than to drugs and biological substances
CPT/HCPCS: J2405; J3010; J7030; Q9967

== ENCOUNTER 2020-01-01 18:21 | Emergency (ER) | payer MEDICAID ==
[~2020-01-01] VITALS: Ht 160 cm; Wt 90.9 kg
[~2020-01-01 18:21] MED LIST changes: +COGENTIN 2MG2 MG/TA1 PO; +MACROBID 1100 MG/CAP PO; +PYRIDIUM200 M1 PO
[2020-01-01 18:31] VITALS: BP 127/84; PULSE 82; TEMP 97
[2020-01-01] MEDS ORDERED: CLEOCIN HCL300 MG PO (18:54)
== END 2020-01-01 19:11 | disposition home or self-care (01) ==
LOC: COL.ER 18:21
DX: L03.211 Cellulitis of face (principal); I10 Essential (primary) hypertension; J45.909 Unspecified asthma, uncomplicated; F17.210 Nicotine dependence, cigarettes, uncomplicated; Z79.899 Other long term (current) drug therapy; Z79.51 Long term (current) use of inhaled steroids

== ENCOUNTER 2020-01-02 14:33 | Outpatient (RCR) | payer MEDICAID ==
[~2020-01-02] VITALS: Ht 160 cm; Wt 93.5 kg
[2020-01-02 15:07] VITALS: BP 92/67; PULSE 89; TEMP 98.5
== END 2020-01-05 09:24 | disposition home or self-care (01) ==
LOC: EUO 14:33
DX: J45.40 Moderate persistent asthma, uncomplicated (principal); Z79.899 Other long term (current) drug therapy

== ENCOUNTER 2020-01-15 23:26 | Emergency (ER) | payer MEDICAID ==
[~2020-01-15] VITALS: Ht 160 cm; Wt 90.9 kg
[2020-01-15 23:36] VITALS: TEMP 98.1
[2020-01-16 00:16] LABS: STREP SCREEN NEGATIVE
[2020-01-16] MEDS ORDERED: AMOXICILLIN 8751 TAB PO (00:43)
[2020-01-16 00:53] VITALS: BP 106/71; PULSE 93
== END 2020-01-16 00:55 | disposition home or self-care (01) ==
LOC: COL.ER 23:26
PROVIDERS: Physician Assistant
DX: J03.90 Acute tonsillitis, unspecified (principal); I10 Essential (primary) hypertension; J45.909 Unspecified asthma, uncomplicated; F17.210 Nicotine dependence, cigarettes, uncomplicated; Z90.710 Acquired absence of both cervix and uterus
CPT/HCPCS: J8540

== ENCOUNTER 2020-01-16 17:10 | Emergency (ER) | payer MEDICAID ==
[~2020-01-16] VITALS: Ht 160.1 cm; Wt 73.6 kg
[~2020-01-16 17:10] MED LIST changes: +AMOXICILLIN 8751 TAB PO
[2020-01-16 19:42] VITALS: BP 136/74; PULSE 94; TEMP 98.3
== END 2020-01-16 20:01 | disposition home or self-care (01) ==
LOC: COL.ER 17:10
DX: J02.9 Acute pharyngitis, unspecified (principal); J20.9 Acute bronchitis, unspecified; I10 Essential (primary) hypertension; J45.909 Unspecified asthma, uncomplicated; F17.210 Nicotine dependence, cigarettes, uncomplicated; Z20.828 Contact with and (suspected) exposure to other viral communicable diseases; Z90.710 Acquired absence of both cervix and uterus; Z88.6 Allergy status to analgesic agent; Z88.8 Allergy status to other drugs, medicaments and biological substances

== ENCOUNTER 2020-02-07 13:00 | Outpatient (RCR) | payer MEDICAID ==
[2020-01-16 15:11] VITALS: BP 141/97; PULSE 122; TEMP 98.2
[2020-01-24 13:19] VITALS: BP 121/78; PULSE 88; TEMP 98.3
[~2020-02-07] VITALS: Ht 160 cm; Wt 100.0 kg
[2020-02-07 13:19] VITALS: BP 121/70; PULSE 96; TEMP 98.1
== END 2020-04-03 15:04 | disposition home or self-care (01) ==
LOC: EUO 13:00
DX: J45.40 Moderate persistent asthma, uncomplicated (principal); Z79.899 Other long term (current) drug therapy

== ENCOUNTER 2020-05-18 03:01 | Emergency (ER) | payer MEDICAID ==
[~2020-05-18] VITALS: Ht 160 cm; Wt 100.9 kg
[2020-05-18 03:10] VITALS: BP 132/87; TEMP 97.1
[2020-05-18 03:40] LABS: STREP SCREEN NEGATIVE
[2020-05-18] MEDS ORDERED: PREDNISONE20 MG PO (03:49)
[2020-05-18 04:06] VITALS: PULSE 79
== END 2020-05-18 04:08 | disposition home or self-care (01) ==
LOC: COL.ER 03:01
PROVIDERS: Emergency Medicine
DX: R59.0 Localized enlarged lymph nodes (principal); B37.9 Candidiasis, unspecified; J44.9 Chronic obstructive pulmonary disease, unspecified; G89.29 Other chronic pain; G43.909 Migraine, unspecified, not intractable, without status migrainosus; F31.9 Bipolar disorder, unspecified; F17.210 Nicotine dependence, cigarettes, uncomplicated; Z20.822 Contact with and (suspected) exposure to COVID-19; Z88.6 Allergy status to analgesic agent; Z88.8 Allergy status to other drugs, medicaments and biological substances
CPT/HCPCS: J7512

== ENCOUNTER 2020-06-18 13:16 | Outpatient (RCR) | payer MEDICAID ==
[~2020-06-18] VITALS: Ht 160 cm; Wt 102.1 kg
[~2020-06-18 13:16] MED LIST changes: -AMITRIPTYLINE H50 M1 PO; +ELAVIL100 MG PO; -VYVANSE40 MG PO; +VYVANSE60 MG PO
[2020-06-18 14:02] VITALS: BP 105/71; PULSE 93; TEMP 98.5
== END 2020-06-18 13:45 | disposition home or self-care (01) ==
LOC: EUO 13:16
DX: J45.40 Moderate persistent asthma, uncomplicated (principal); Z79.899 Other long term (current) drug therapy

== ENCOUNTER 2020-07-04 10:51 | Outpatient (CLI) | payer MEDICAID ==
[~2020-07-04] VITALS: Ht 160 cm; Wt 96.4 kg
[2020-07-04 11:08] VITALS: BP 114/78; PULSE 93; TEMP 97.7
== END 2020-07-04 16:22 | disposition home or self-care (01) ==
LOC: EUO 10:51
DX: J45.40 Moderate persistent asthma, uncomplicated (principal)
CPT/HCPCS: J2357

== ENCOUNTER 2020-07-04 13:00 | Outpatient (RCR) | payer MEDICAID | END 2020-08-30 | disposition still patient (30) | LOC: WSPT | DX: S82.891D Other fracture of right lower leg, subsequent encounter for closed fracture with routine healing (principal); S82.891A Other fracture of right lower leg, initial encounter for closed fracture ==

== ENCOUNTER 2020-07-25 12:56 | Outpatient (CLI) | payer MEDICAID ==
[2020-07-25 13:15] VITALS: BP 117/75; PULSE 94; TEMP 98.1
== END 2020-07-25 19:55 | disposition home or self-care (01) ==
LOC: EUO 12:56
DX: J45.40 Moderate persistent asthma, uncomplicated (principal); Z79.899 Other long term (current) drug therapy
CPT/HCPCS: J2357

== ENCOUNTER 2020-08-10 10:53 | Outpatient (CLI) | payer MEDICAID ==
[~2020-08-10] VITALS: Ht 160 cm; Wt 103.2 kg
[2020-08-10 12:04] VITALS: BP 131/86; PULSE 88; TEMP 97.6
== END 2020-08-10 12:14 | disposition home or self-care (01) ==
LOC: EUO 10:53
DX: J45.40 Moderate persistent asthma, uncomplicated (principal); Z79.899 Other long term (current) drug therapy
CPT/HCPCS: J2357

== ENCOUNTER 2020-08-29 12:55 | Outpatient (CLI) | payer MEDICAID ==
[~2020-08-29] VITALS: Ht 160 cm; Wt 99.1 kg
[2020-08-29 14:04] VITALS: BP 116/68; PULSE 87; TEMP 98
== END 2020-08-29 17:15 | disposition home or self-care (01) ==
LOC: EUO 12:55
DX: J45.40 Moderate persistent asthma, uncomplicated (principal); Z79.899 Other long term (current) drug therapy
CPT/HCPCS: J2357

== ENCOUNTER 2020-09-12 13:01 | Outpatient (CLI) | payer MEDICAID ==
[~2020-09-12] VITALS: Ht 160 cm; Wt 101.8 kg
[2020-09-12 13:32] VITALS: BP 119/75; PULSE 89; TEMP 98
== END 2020-09-12 13:34 | disposition home or self-care (01) ==
LOC: EUO 13:01
DX: J45.40 Moderate persistent asthma, uncomplicated (principal); Z79.899 Other long term (current) drug therapy
CPT/HCPCS: J2357

== ENCOUNTER → 2020-09-25 | Emergency (ER) | payer MEDICAID ==
[~2020-09-25] VITALS: Ht 160 cm; Wt 90.9 kg
[~2020-09-25] MED LIST changes: +KLONOPIN 1MG1 MG PO
[2020-09-25 14:58] VITALS: BP 129/85; PULSE 92; TEMP 97.8
== END ==
LOC: COL.ER 14:45
DX: R07.9 Chest pain, unspecified (principal); F41.9 Anxiety disorder, unspecified; I10 Essential (primary) hypertension; F31.9 Bipolar disorder, unspecified; J45.909 Unspecified asthma, uncomplicated

== ENCOUNTER 2020-09-26 12:45 | Outpatient (CLI) | payer MEDICAID ==
[~2020-09-26] VITALS: Ht 160 cm; Wt 101.7 kg
[~2020-09-26 12:45] MED LIST changes: -KLONOPIN 1MG1 MG PO
[2020-09-26 13:50] VITALS: BP 104/64; PULSE 86; TEMP 98.1
== END 2020-09-26 15:00 | disposition home or self-care (01) ==
LOC: EUO 12:45
DX: J45.40 Moderate persistent asthma, uncomplicated (principal); Z79.899 Other long term (current) drug therapy
CPT/HCPCS: J2357

== ENCOUNTER 2020-10-13 20:29 | Emergency (ER) | payer MEDICAID ==
[~2020-10-13] VITALS: Ht 160 cm; Wt 92.3 kg
[2020-10-13] MEDS ORDERED: ZITHROMAX Z PA250 MG PO ×2 (22:34→22:47)
[2020-10-13 23:01] VITALS: BP 132/64; PULSE 88; TEMP 97.9
== END 2020-10-13 23:02 | disposition home or self-care (01) ==
LOC: COL.ER 20:29
DX: J40 Bronchitis, not specified as acute or chronic (principal); F31.9 Bipolar disorder, unspecified; J45.909 Unspecified asthma, uncomplicated; F17.200 Nicotine dependence, unspecified, uncomplicated; Z88.6 Allergy status to analgesic agent; Z88.8 Allergy status to other drugs, medicaments and biological substances; Z79.899 Other long term (current) drug therapy

== ENCOUNTER 2020-10-29 12:54 | Outpatient (CLI) | payer MEDICAID ==
[~2020-10-29] VITALS: Ht 160 cm; Wt 96.3 kg
[2020-10-29 13:50] VITALS: BP 144/103; PULSE 93; TEMP 98.2
== END 2020-10-29 13:52 | disposition home or self-care (01) ==
LOC: EUO 12:54
DX: J45.40 Moderate persistent asthma, uncomplicated (principal); Z79.899 Other long term (current) drug therapy
CPT/HCPCS: J2357

== ENCOUNTER 2020-12-25 22:08 | Emergency (ER) | payer MEDICAID ==
[~2020-12-25] VITALS: Ht 160 cm; Wt 106.8 kg
[2020-12-25 22:25] VITALS: TEMP 97.3
[2020-12-26 00:47] VITALS: BP 132/70; PULSE 76
== END 2020-12-26 00:47 | disposition home or self-care (01) ==
LOC: COL.ER 22:08
DX: G43.909 Migraine, unspecified, not intractable, without status migrainosus (principal); J45.909 Unspecified asthma, uncomplicated; F17.210 Nicotine dependence, cigarettes, uncomplicated; Z90.711 Acquired absence of uterus with remaining cervical stump; Z88.6 Allergy status to analgesic agent; Z88.5 Allergy status to narcotic agent; Z79.899 Other long term (current) drug therapy
CPT/HCPCS: J0780; J1100; J1200; J2765; J7030

== ENCOUNTER 2021-01-01 14:02 | Outpatient (CLI) | payer MEDICAID ==
[~2021-01-01] VITALS: Ht 160 cm; Wt 105.1 kg
[2021-01-01 14:30] VITALS: BP 127/70; PULSE 97; TEMP 99
== END 2021-01-01 14:50 | disposition home or self-care (01) ==
LOC: EUO 14:02
DX: J45.40 Moderate persistent asthma, uncomplicated (principal); Z79.899 Other long term (current) drug therapy
CPT/HCPCS: J2357

== ENCOUNTER 2021-01-17 13:41 | Outpatient (CLI) | payer MEDICAID ==
[~2021-01-17] VITALS: Ht 160 cm; Wt 106.0 kg
[2021-01-17 14:14] VITALS: BP 147/99; PULSE 87; TEMP 97.5
== END 2021-01-17 15:47 | disposition home or self-care (01) ==
LOC: EUO 13:41
DX: J45.40 Moderate persistent asthma, uncomplicated (principal); Z79.899 Other long term (current) drug therapy
CPT/HCPCS: J2357

== ENCOUNTER 2021-01-31 14:48 | Outpatient (CLI) | payer MEDICAID ==
[~2021-01-31] VITALS: Ht 160 cm; Wt 107.0 kg
[2021-01-31 15:13] VITALS: BP 138/85; PULSE 86; TEMP 98.1
[2021-01-31] MEDS ORDERED: KLONOPIN 1MG1 MG PO (15:24)
== END 2021-01-31 15:25 ==
LOC: EUO 14:48
DX: J45.40 Moderate persistent asthma, uncomplicated (principal); Z79.899 Other long term (current) drug therapy
CPT/HCPCS: J2357

== ENCOUNTER 2021-02-15 14:56 | Outpatient (CLI) | payer MEDICAID ==
[~2021-02-15] VITALS: Ht 160 cm; Wt 109.2 kg
[~2021-02-15 14:56] MED LIST changes: +KLONOPIN 1MG1 MG PO
[2021-02-15 15:55] VITALS: BP 149/83; PULSE 94; TEMP 97.6
== END 2021-02-15 15:56 ==
LOC: EUO 14:56
DX: J45.40 Moderate persistent asthma, uncomplicated (principal); Z79.899 Other long term (current) drug therapy
CPT/HCPCS: J2357

== ENCOUNTER → 2021-03-08 | Outpatient (CLI) | payer MEDICAID | LOC: EUO 15:04 | DX: J45.40 Moderate persistent asthma, uncomplicated (principal); Z79.899 Other long term (current) drug therapy | CPT/HCPCS: J2357 ==

== ENCOUNTER 2021-03-22 14:09 | Outpatient (RCR) | payer MEDICAID ==
[~2021-03-22] VITALS: Ht 160 cm; Wt 110.0 kg
[2021-03-22 14:33] VITALS: BP 124/77; PULSE 90; TEMP 98
== END 2021-03-22 15:40 ==
LOC: EUO 14:09
DX: J45.40 Moderate persistent asthma, uncomplicated (principal); Z79.899 Other long term (current) drug therapy
CPT/HCPCS: J2357

== ENCOUNTER 2021-04-07 06:04 | Emergency (ER) | payer MEDICAID ==
[~2021-04-07] VITALS: Ht 160 cm; Wt 109.1 kg
[2021-04-07 06:21] VITALS: TEMP 98.2
[2021-04-07 07:19] VITALS: BP 118/72; PULSE 98
== END 2021-04-07 07:22 | disposition home or self-care (01) ==
LOC: COL.ER 06:04
DX: J06.9 Acute upper respiratory infection, unspecified (principal); I10 Essential (primary) hypertension; F31.9 Bipolar disorder, unspecified; J45.909 Unspecified asthma, uncomplicated; F17.210 Nicotine dependence, cigarettes, uncomplicated; Z79.899 Other long term (current) drug therapy; Z20.822 Contact with and (suspected) exposure to COVID-19

== ENCOUNTER 2021-04-15 15:26 | Outpatient (CLI) | payer MEDICAID ==
[~2021-04-15] VITALS: Ht 160 cm; Wt 109.0 kg
[2021-04-15] MEDS ORDERED: PREDNISONE10 MG PO (15:37)
[2021-04-15 15:48] VITALS: BP 144/80; PULSE 97; TEMP 97.9
== END 2021-04-15 17:26 | disposition home or self-care (01) ==
LOC: EUO 15:26
DX: J45.40 Moderate persistent asthma, uncomplicated (principal); Z79.899 Other long term (current) drug therapy
CPT/HCPCS: J2357

== ENCOUNTER 2021-05-07 13:59 | Outpatient (CLI) | payer MEDICAID ==
[~2021-05-07] VITALS: Ht 160 cm; Wt 111.0 kg
[2021-05-07 14:30] VITALS: BP 143/99; PULSE 93; TEMP 98.3
[2021-05-07] MEDS ORDERED: 00186-0372-20 IH (16:59)
== END 2021-05-09 14:34 ==
LOC: EUO 13:59
DX: J45.40 Moderate persistent asthma, uncomplicated (principal)
CPT/HCPCS: J2357

== ENCOUNTER 2021-05-21 15:02 | Outpatient (CLI) | payer MEDICAID ==
[~2021-05-21] VITALS: Ht 160 cm; Wt 112.4 kg
[~2021-05-21 15:02] MED LIST changes: +00186-0372-20 IH
[2021-05-21 15:37] VITALS: BP 139/90; PULSE 95; TEMP 97.9
== END 2021-05-21 15:41 ==
LOC: EUO 15:02
DX: J45.40 Moderate persistent asthma, uncomplicated (principal); Z79.899 Other long term (current) drug therapy
CPT/HCPCS: J2357

== ENCOUNTER 2021-06-20 15:59 | Emergency (ER) | payer MEDICAID ==
[~2021-06-20] VITALS: Ht 160 cm; Wt 113.6 kg
[2021-06-20 17:06] LABS: BASO % 0.2 % (0.0-2.0); EOS # 0.3 K/mm3 (0.0-0.7); EOS % 2.7 % (0.0-4.0); GRAN # 6.5 K/mm3 (1.4-6.5); GRAN % 51.1 % (42.2-75.2); HEMATOCRIT 42.9 % (37.0-47.0); HEMOGLOBIN 14.7 g/dl (12.5-16.0); LYMPH # 4.9 K/mm3 (1.2-3.4); LYMPH % 38.6 % (20.0-51.0); MEAN CELL VOLUME 84 fl (80.0-100.0); MEAN CORPUSCULAR HEMOGLOBIN 29 pg (27-31); MEAN CORPUSCULAR HGB CONC 34 g/dl (33.0-37.0); MEAN PLATELET VOLUME 8.2 fl (7.4-10.4); MONO # 0.9 K/mm3 (0.1-0.6); MONO % 6.9 % (1.7-9.3); PLATELET COUNT 461 K/mm3 (130-400); RED BLOOD COUNT 5.12 M/mm3 (4.10-5.30); REDCELL DISTRIBUTION WIDTH-CV 15.7 % (11.5-14.5)
[2021-06-20 17:31] LABS: ALBUMIN 3.7 gm/dL (3.5-5.0); BILIRUBIN,TOTAL 0.1 mg/dL (0.2-1.2); CREATININE, serum 0.8 mg/dL (0.57-1.11); POTASSIUM 3.5 mmol/L (3.5-4.5); TOTAL PROTEIN 7.3 gm/dL (6.2-8.1)
[2021-06-20 18:17] LABS: COLLECTION METHOD CLEAN CATCH
[2021-06-20 18:30] LABS: MUCOUS Present (NOT PRESENT); PH 6 (5-8); URINE APPEARANCE Hazy (CLEAR/HAZY); URINE BACTERIA None Seen /hpf (NONE SEEN); URINE BILIRUBIN Negative (NEGATIVE); URINE BLOOD 1+ (NEGATIVE); URINE COLOR Yellow (YELLOW); URINE GLUCOSE Negative (NEGATIVE); URINE KETONE Negative (NEGATIVE); URINE LEUKOCYTE ESTERASE Negative (NEGATIVE); URINE NITRATE Negative (NEGATIVE); URINE PROTEIN(semi-quant) Negative (NEGATIVE); URINE UROBILINOGEN Negative (NEGATIVE)
[2021-06-20 19:00] VITALS: BP 151/101; PULSE 81; TEMP 98.9
== END 2021-06-20 19:00 | disposition home or self-care (01) ==
LOC: COL.ER 15:59
PROVIDERS: Student in an Organized Health Care Education/Training Program
DX: R10.9 Unspecified abdominal pain (principal); F17.200 Nicotine dependence, unspecified, uncomplicated; W54.1XXA Struck by dog, initial encounter
CPT/HCPCS: Q9967

== ENCOUNTER 2021-09-13 17:25 | Emergency (ER) | payer MEDICAID ==
[~2021-09-13] VITALS: Ht 160 cm; Wt 118.2 kg
[2021-09-13 17:48] VITALS: TEMP 97
[2021-09-13] MEDS ORDERED: DOXYCYCLINE 10100 MG PO (18:24)
[2021-09-13 18:50] VITALS: BP 122/78; PULSE 76
== END 2021-09-13 18:50 | disposition home or self-care (01) ==
LOC: COL.ER 17:25
DX: L02.416 Cutaneous abscess of left lower limb (principal); F17.200 Nicotine dependence, unspecified, uncomplicated; Z28.310 Unvaccinated for COVID-19

== ENCOUNTER 2021-10-31 08:11 | Emergency (ER) | payer MEDICAID ==
[~2021-10-31] VITALS: Ht 160 cm; Wt 120.9 kg
[2021-10-31 08:21] VITALS: TEMP 97.9
[2021-10-31] MEDS ORDERED: CEPHALEXIN500 M1 PO (08:54)
[2021-10-31 09:07] VITALS: BP 162/84; PULSE 90
== END 2021-10-31 09:07 | disposition home or self-care (01) ==
LOC: COL.ER 08:11
DX: L73.9 Follicular disorder, unspecified (principal); F17.200 Nicotine dependence, unspecified, uncomplicated

== ENCOUNTER → 2021-11-01 | Outpatient (CLI) | payer MEDICAID | LOC: COL.RAD 07:30 | DX: N28.9 Disorder of kidney and ureter, unspecified (principal); E27.8 Other specified disorders of adrenal gland | CPT/HCPCS: Q9967 ==

== ENCOUNTER 2022-06-27 20:47 | Emergency (ER) | payer MEDICAID ==
[~2022-06-27] VITALS: Ht 160 cm; Wt 115.0 kg
[~2022-06-27 20:47] MED LIST changes: +PREDNISONE50 MG PO; +XANAX 1MG1 MG PO
[2022-06-27] MEDS ORDERED: CEPHALEXIN500 M1 PO (21:49)
[2022-06-27 22:04] VITALS: BP 140/95; PULSE 97; TEMP 98.9
== END 2022-06-27 22:18 | disposition home or self-care (01) ==
LOC: COL.ER 20:47
DX: S61.210A Laceration without foreign body of right index finger without damage to nail, initial encounter (principal); S61.212A Laceration without foreign body of right middle finger without damage to nail, initial encounter; R11.0 Nausea; Z88.5 Allergy status to narcotic agent; Z23 Encounter for immunization; W26.8XXA Contact with other sharp object(s), not elsewhere classified, initial encounter; W18.40XA Slipping, tripping and stumbling without falling, unspecified, initial encounter; Y92.029 Unspecified place in mobile home as the place of occurrence of the external cause